=== PATIENT | female | born 1970 | race African-American/Black ===

== ENCOUNTER 2017-04-21 12:19 | Emergency (ER) | payer MEDICAID ==
[~2017-04-21] VITALS: Ht 157.5 cm; Wt 81.0 kg
[~2017-04-21 12:19] MED LIST: IOHEXOL-300 100 ML BOTTLE ONE; SODIUM CHLORIDE 0.9% 10ML VIAL ONE
[2017-04-21 14:18] LABS: BASOPHILS % 0.5 % (0.0-2.0); EOSINOPHILS % 0.6 % (0.0-5.0); HEMATOCRIT. 28.6 % (36.0-48.0); HEMOGLOBIN. 9.1 g/dL (12.0-16.0); LYMPHOCYTES % 28.3 % (20.0-50.0); MEAN CORPUSCULAR HEMOGLOBIN 21.9 pg (28.0-32.0); MEAN CORPUSCULAR VOLUME 68.9 fL (81.0-99.0); MEAN PLATELET VOLUME 7.7 fl (7.4-10.4); NEUTROPHILS % 61.6 % (40.0-76.0); PLATELET 235 x1000/uL (130-400); RED BLOOD CELL COUNT 4.15 mill/uL (4.2-5.4)
[2017-04-21 14:27] LABS: PROTHROMBIN TIME 10.5 sec (9.4-11.6)
[2017-04-21 14:31] LABS: HCG SCREEN NEGATIVE
[2017-04-21 14:34] LABS: CARBON DIOXIDE 28 mEq/L (21-32); CHLORIDE 106 mEq/L (98-107)
[2017-04-21 14:39] LABS: PLATELET ESTIMATE NORMAL
[2017-04-21 14:39] LABS: CLARITY URINE CLEAR (CLEAR); COLOR URINE YELLOW (YELLOW); GLUCOSE URINE NEGATIVE (NEGATIVE); KETONES URINE 1+ (NEGATIVE); LEUKOCYTE ESTERASE URINE NEGATIVE (NEGATIVE); NITRITE URINE NEGATIVE (NEGATIVE); OCCULT BLOOD URINE NEGATIVE (NEGATIVE); PROTEIN URINE NEGATIVE (NEGATIVE); SPECIFIC GRAVITY URINE 1.019 (1.005-1.030); UROBILINOGEN URINE 0.2 E.U./dL (0.2-1.0)
[2017-04-21] MEDS ORDERED: KETOROLAC 30MG/ML VIAL IV ONE (15:00)
[2017-04-21 18:41] VITALS: BP 123/68
== END 2017-04-21 19:11 | disposition home or self-care (01) ==
LOC: ER 13:33
DX: R10.32 Left lower quadrant pain (principal); D25.9 Leiomyoma of uterus, unspecified; D64.9 Anemia, unspecified; N88.8 Other specified noninflammatory disorders of cervix uteri; Z91.010 Allergy to peanuts
CPT/HCPCS: 36415; 74177; 76830; 76856; 80053; 81003; 82270; 83690; 84703; 85025; 85610; 96374; 99285; A4216; J1885; Q9967; Z7610

== ENCOUNTER 2017-08-21 12:55 | Emergency (ER) | payer MEDICAID ==
[~2017-08-21] VITALS: Ht 154.9 cm; Wt 78.0 kg
[2017-08-21 13:44] VITALS: BP 137/70
== END 2017-08-21 16:52 | disposition home or self-care (01) ==
LOC: ER 15:13
DX: T60.8X1A Toxic effect of other pesticides, accidental (unintentional), initial encounter (principal); T54.3X1A Toxic effect of corrosive alkalis and alkali-like substances, accidental (unintentional), initial encounter; M25.532 Pain in left wrist; M25.522 Pain in left elbow; M25.572 Pain in left ankle and joints of left foot; I20.9 Angina pectoris, unspecified; Y92.89 Other specified places as the place of occurrence of the external cause
CPT/HCPCS: 99281

== ENCOUNTER 2018-02-05 20:39 | Emergency (ER) | payer MEDICAID ==
[~2018-02-05] VITALS: Ht 157.5 cm; Wt 81.0 kg
[2018-02-05] MEDS ORDERED: IBUPROFEN 600MG TABLET PO ONE (23:45)
[2018-02-06 01:24] VITALS: BP 168/77
== END 2018-02-06 01:30 | disposition home or self-care (01) ==
LOC: ER 20:39
DX: S43.492A Other sprain of left shoulder joint, initial encounter (principal); S93.491A Sprain of other ligament of right ankle, initial encounter; V49.88XA Car occupant (driver) (passenger) injured in other specified transport accidents, initial encounter; Y93.89 Activity, other specified; Y92.89 Other specified places as the place of occurrence of the external cause; Y99.8 Other external cause status; Z98.890 Other specified postprocedural states; Z91.010 Allergy to peanuts
CPT/HCPCS: 71045; 73030; 73610; 99284; Z7610

== ENCOUNTER 2019-01-03 00:34 | Emergency (ER) | payer MEDICAID ==
[~2019-01-03] VITALS: Ht 157.5 cm; Wt 78.2 kg
[2019-01-03 00:47] VITALS: BP 146/72
== END 2019-01-03 01:45 | disposition home or self-care (01) ==
LOC: ER 00:34
DX: R10.9 Unspecified abdominal pain (principal); Z91.010 Allergy to peanuts; Z98.890 Other specified postprocedural states
CPT/HCPCS: 99281

== ENCOUNTER 2019-07-30 02:16 | Emergency (ER) | payer MEDICAID ==
[~2019-07-30] VITALS: Ht 157.5 cm; Wt 82.0 kg
[2019-07-30 04:24] LABS: BASOPHILS % 0.7 % (0.0-2.0); HEMATOCRIT. 30.8 % (36.0-48.0); HEMOGLOBIN. 9.8 g/dL (12.0-16.0); MEAN CORPUSCULAR VOLUME 72.7 fL (81.0-99.0); MEAN PLATELET VOLUME 8.8 fl (7.4-10.4); MONOCYTES % 7.4 % (2.0-8.0); NEUTROPHILS % 61.9 % (40.0-76.0); PLATELET 251 x1000/uL (130-400); RED BLOOD CELL COUNT 4.24 mill/uL (4.2-5.4)
[2019-07-30 04:33] LABS: CHLORIDE 106 mEq/L (98-107)
[2019-07-30 05:35] VITALS: BP 136/85
== END 2019-07-30 05:36 | disposition home or self-care (01) ==
LOC: ER 02:16
DX: R51 Headache (principal); I10 Essential (primary) hypertension; Z98.890 Other specified postprocedural states; Z91.010 Allergy to peanuts
CPT/HCPCS: 36415; 99284

== ENCOUNTER 2020-09-08 18:47 | Emergency (ER) | payer MEDICAID ==
[~2020-09-08] VITALS: Ht 157.5 cm; Wt 81.0 kg
[2020-09-08 19:11] VITALS: BP 157/95
== END 2020-09-08 20:15 | disposition left against medical advice (07) ==
LOC: ER 18:47
DX: Z53.21 Procedure and treatment not carried out due to patient leaving prior to being seen by health care provider (principal)